=== PATIENT | male | born 1945 | race Caucasian/White ===

== ENCOUNTER → 2017-03-07 | Outpatient (REF) ==
[~2017-03-07] MED LIST: ACIDOPHILUS PO; ALDACTONE 25MG25 M1 PO; ALDACTONE 25MG25 MG PO; ALEVE 220MG220 MG PO; ALPHAG-P-0.1-5ML OS; AMITRIPTYLINE H25 M1 PO; ANTIVERT 25MG25 MG PO; ASPIRIN 32325 MG/TAB PO; AYR; AYR SALINE GEL1 NS; FLAXSEED OIL1 CAP PO; GLUCOSAMINE PO; ISMO 20MG20 MG PO; LIPITOR 80MG80 MG PO; MINOXIDIL 10 PO; MUCINEX 60600 MG/TA1 PO; MUCINEX 60600 MG/TAB PO; NITROSTAT0.4 MG/TAB SL; NORVASC 5MG5 MG/TAB PO; PLAVIX 75MG TAB75 MG PO; PROTONIX 40MG T40 MG PO; RITALIN LA20 MG PO; SINUS RINSE; TIMOPTIC OCUDOS0.25% OU; TOPROL XL 50MG50 MG PO; TRAVATAN 2.5 M2.5 M1 OU; TRAVATAN Z 2.52.5 ML OS; TYLENOL 325MG325 MG PO; ZOCOR 20MG20 MG PO; [UNRECOGNIZED DRUG - OTHER]
[2017-03-07 15:55] LABS: THYROID STIMULATING HORMONE 1.61 uIU/mL (0.465-4.680)
== END ==
LOC: ZLAB.WCH 15:11
PROVIDERS: Internal Medicine
DX: Z01.89 Encounter for other specified special examinations (principal)

== ENCOUNTER → 2017-03-27 | Outpatient (CLI) | payer MEDICARE, OTHER | LOC: COL.PUL 13:31 | DX: R06.00 Dyspnea, unspecified (principal) ==

== ENCOUNTER → 2017-05-02 | Outpatient (REF) | LOC: ZLAB.WCH 18:07 | DX: Z01.89 Encounter for other specified special examinations (principal) ==

== ENCOUNTER → 2017-07-09 | Outpatient (CLI) | payer MEDICARE, OTHER | LOC: COL.PUL 13:00 | DX: R06.02 Shortness of breath (principal) | CPT/HCPCS: J7674 ==

== ENCOUNTER → 2018-03-09 | Outpatient (REF) ==
[2018-03-09 17:07] LABS: PSA-TOTAL 2.78 ng/mL (0-4)
[2018-03-09 17:22] LABS: THYROID STIMULATING HORMONE 1.45 uIU/mL (0.465-4.680)
== END ==
LOC: ZLAB.WCH 16:13
PROVIDERS: Internal Medicine
DX: Z01.89 Encounter for other specified special examinations (principal)
CPT/HCPCS: G0103

== ENCOUNTER → 2018-03-24 | Outpatient (REF) | LOC: ZLAB.WCH 17:52 | DX: Z01.89 Encounter for other specified special examinations (principal) ==

== ENCOUNTER → 2018-06-25 | Outpatient (CLI) | payer MEDICARE, OTHER | LOC: ZCOL.LAB 14:07 | DX: L97.919 Non-pressure chronic ulcer of unspecified part of right lower leg with unspecified severity (principal) ==

== ENCOUNTER → 2018-07-21 | Outpatient (CLI) | payer MEDICARE, OTHER | LOC: ZCOL.LAB 16:55 | DX: L97.815 Non-pressure chronic ulcer of other part of right lower leg with muscle involvement without evidence of necrosis (principal) ==